=== PATIENT | female | born 1945 | race Caucasian/White ===

== ENCOUNTER → 2017-09-07 | Outpatient (CLI) | payer MEDICARE, OTHER ==
[~2017-09-07] MED LIST: AMBIEN PO; COLACE 100 MG100 MG PO; DIAZIDE; FIORICET; MELLARIL; MULTIVITAMINS; PREMARIN; PROVERA2.5 MG PO; ZYRTEC; [UNRECOGNIZED DRUG - OTHER]
== END ==
LOC: M.RAD 11:50
DX: M25.561 Pain in right knee (principal); M79.89 Other specified soft tissue disorders

== ENCOUNTER → 2018-01-11 | Outpatient (CLI) | payer MEDICARE, OTHER | LOC: M.RAD 09:37 | DX: Z12.31 Encounter for screening mammogram for malignant neoplasm of breast (principal) ==

== ENCOUNTER → 2019-01-14 | Outpatient (CLI) | payer MEDICARE, OTHER | LOC: M.RAD 09:31 | DX: Z12.31 Encounter for screening mammogram for malignant neoplasm of breast (principal) ==

== ENCOUNTER → 2019-04-16 | Outpatient (CLI) | payer MEDICARE, OTHER | LOC: M.RAD 11:53 | DX: R05 Cough (principal); M41.85 Other forms of scoliosis, thoracolumbar region; K44.9 Diaphragmatic hernia without obstruction or gangrene ==

== ENCOUNTER → 2019-07-23 | Outpatient (CLI) | payer MEDICARE, OTHER ==
[~2019-07-23] MED LIST changes: +ABILIFY 5 MG TAB5 M1 PO; +CELEXA20 MG PO; +EFFER-K 20 MEQ20 ME1 PO; +FEMHRT 0.5 MG-1 EACH PO; +PERPHEN AMITRI PO; +PROTONIX40 M4 PO; +RESTASIS MULTI5.5 ML INTRAOCULR; +SKELAXIN 800 M800 M1 PO; +SYSTANE 0.3-0.1 EACH INTRAOCULR; +TRAMADOL 50 MG50 MG PO; +TRIAMTERENE/HCT1 CA1 PO; +ZANTAC 150MG T150 M1 PO; +ZOVIRAX200 MG PO
== END ==
LOC: M.PC 05:02
DX: M47.816 Spondylosis without myelopathy or radiculopathy, lumbar region (principal); M48.061 Spinal stenosis, lumbar region without neurogenic claudication; M41.86 Other forms of scoliosis, lumbar region; M51.36 Other intervertebral disc degeneration, lumbar region; Z79.899 Other long term (current) drug therapy

== ENCOUNTER → 2019-07-25 | Outpatient (CLI) | payer MEDICARE, OTHER ==
[~2019-07-25] MED LIST changes: +ABILIFY 2 MG2 M1 PO; -ABILIFY 5 MG TAB5 M1 PO; -AMBIEN PO; +AMBIEN5 MG PO; +FISH OIL 1,0001 EAC9 PO
== END ==
LOC: M.MRI 10:25
DX: M47.26 Other spondylosis with radiculopathy, lumbar region (principal); M41.86 Other forms of scoliosis, lumbar region; M43.16 Spondylolisthesis, lumbar region; M43.17 Spondylolisthesis, lumbosacral region; M25.78 Osteophyte, vertebrae; M51.24 Other intervertebral disc displacement, thoracic region; M48.062 Spinal stenosis, lumbar region with neurogenic claudication; M12.88 Other specific arthropathies, not elsewhere classified, other specified site; M48.07 Spinal stenosis, lumbosacral region; M16.0 Bilateral primary osteoarthritis of hip

== ENCOUNTER → 2019-07-28 | Outpatient (CLI) | payer MEDICARE, OTHER | END | disposition home or self-care (01) | LOC: M.PC 04:44 | DX: M47.816 Spondylosis without myelopathy or radiculopathy, lumbar region (principal); M51.36 Other intervertebral disc degeneration, lumbar region; M41.86 Other forms of scoliosis, lumbar region; M54.5 Low back pain; Z98.890 Other specified postprocedural states; Z79.899 Other long term (current) drug therapy ==

== ENCOUNTER → 2019-08-11 | Outpatient (CLI) | payer MEDICARE, OTHER | LOC: M.PC 01:19 | DX: M41.86 Other forms of scoliosis, lumbar region (principal); M47.816 Spondylosis without myelopathy or radiculopathy, lumbar region; M51.36 Other intervertebral disc degeneration, lumbar region ==

== ENCOUNTER → 2020-02-02 | Outpatient (CLI) | payer MEDICARE, OTHER | LOC: M.RAD 09:25 | DX: Z12.31 Encounter for screening mammogram for malignant neoplasm of breast (principal) ==

== ENCOUNTER → 2020-06-29 | Outpatient (CLI) | payer MEDICARE, OTHER | LOC: M.MRI 06-24 16:11 | PROVIDERS: ATTEND Nurse Practitioner Family | DX: M51.25 Other intervertebral disc displacement, thoracolumbar region (principal); M51.37 Other intervertebral disc degeneration, lumbosacral region; M41.86 Other forms of scoliosis, lumbar region; M48.07 Spinal stenosis, lumbosacral region; M41.84 Other forms of scoliosis, thoracic region; M47.814 Spondylosis without myelopathy or radiculopathy, thoracic region ==

== ENCOUNTER → 2020-07-12 | Outpatient (CLI) | payer MEDICARE, OTHER | LOC: M.RAD 13:35 | PROVIDERS: ATTEND Family Medicine | DX: M85.88 Other specified disorders of bone density and structure, other site (principal); N95.9 Unspecified menopausal and perimenopausal disorder ==